=== PATIENT | female | born 1980 | race Two or more races ===

== ENCOUNTER 2020-01-23 12:38 | Inpatient (IN) | payer MEDICAID, OTHER ==
[~2020-01-23] VITALS: Ht 172.7 cm; Wt 147.4 kg
[2020-01-23] MEDS: BUDESONIDE (INHALATION) 180 MCG IH IN SCH (07:10)
[2020-01-23] MEDS ORDERED: methylPREDNISolone SOD SUCC 125 MG/2 ML VL IV ONE (16:00)
[2020-01-23 16:30] LABS: Basophils # (auto) 0 10 ^3/uL (0-0.2); Basophils % (auto) 0.3 % (0.0-2.0); Eosinophils # (auto) 0 10 ^3/uL (0-0.8); Eosinophils % (auto) 0.4 % (0.0-7.0); Hematocrit 39.5 % (36.0-46.0); Hemoglobin 12.9 g/dL (12.2-16.2); Lymphocytes # (auto) 1.8 10 ^3/uL (0.4-5.4); Lymphocytes % (auto) 16.9 % (10.0-50.0); Mean Corpuscular Hemoglobin 25.9 pg (28.0-32.0); Mean Corpuscular Hgb Conc. 32.7 g/dL (32.0-36.0); Mean Corpuscular Volume 79.3 fL (80.0-100.0); Monocytes % (auto) 9.3 % (0.0-12.0); Neutrophils # (auto) 7.7 10 ^3/uL (1.6-8.6); Neutrophils % (auto) 73.1 % (37.0-80.0); Nucleated Red Blood Cells % 0.3 %; Platelet Count (auto) 289 10^3/uL (140-450); Red Blood Cells 4.98 10^6/uL (4.0-5.20); Red Cell Distribution Width 16.2 % (11.8-14.3); White Blood Cell 10.6 10^3/uL (4.4-10.8)
[2020-01-23 16:50] LABS: Albumin 3.3 g/dL (3.4-5.0); BUN/Creatinine Ratio 13.4; Calcium 8.6 mg/dL (8.5-10.1); Potassium 3.8 mmol/L (3.5-5.1)
[2020-01-23 16:54] LABS: Bilirubin, Total 0.5 mg/dL (0.2-1.0); Total Protein 8.3 g/dL (6.4-8.2)
[2020-01-23] MEDS ORDERED: ENOXAPARIN SOD 100 MG/1 ML SYRINGE SC ONE (18:45)
[2020-01-23] MEDS ORDERED: MORPHINE SULF INJ 2 MG/ML SYRINGE 1ML IV PRN ×2 (22:00)
[2020-01-23] MEDS ORDERED: NITROGLYCERIN 0.4 MG SL TAB SL PRN (22:00)
[2020-01-23] MEDS ORDERED: HEPARIN SODIUM (PORCINE) 5000 UNITS/ML 1ML VIAL IV ONE (22:00)
[2020-01-23] MEDS ORDERED: ALBUTEROL SULF HFA 90MCG INH 200DOSE IN PRN (22:00)
[2020-01-23] MEDS ORDERED: ACETAMINOPHEN 325 MG TAB PO PRN (22:00)
[2020-01-23] MEDS ORDERED: ALUM & MAG HYDROX-SIMETH LIQ(MAALOX) 30 ML PO PRN (22:00)
[2020-01-23] MEDS ORDERED: REMDESIVIR PER PHARMACY 0 ML IV SCH (22:00)
[2020-01-23] MEDS ORDERED: METOCLOPRAMIDE HCL 5MG/ml INJ 2ml VIAL IV PRN (22:00)
[2020-01-23] MEDS ORDERED: HEPARIN DRIP/D5W 100UNITS/ML 250 ML IV SCH (22:00)
[2020-01-23] MEDS ORDERED: HYDROcodone-ACET 5/325MG TAB PO PRN (22:00)
[2020-01-23] MEDS ORDERED: REMDESIVIR 200 MG in NS 210ml LOADING DOSE ADULT IV ONE (23:00)
[2020-01-23] MEDS ORDERED: HEPARIN SODIUM (PORCINE) 5000 UNITS/ML 1ML VIAL ONE (23:45)
[2020-01-24 00:08] LABS: INR 1.08 (0.9-1.15); Partial Thromboplastin Time 27.6 sec (23.0-31.2)
[2020-01-24 00:46] LABS: Urine Bacteria FEW /hpf (None Seen); Urine Blood Negative /uL (Negative); Urine Hyaline Cast FEW /lpf (0 - 2); Urine Mucus FEW (None Seen); Urine Specific Gravity 1.026 (1.001-1.035); Urine WBC 33 /hpf (0 - 5)
[2020-01-24 02:20] LABS: INR 1.19 (0.9-1.15)
[2020-01-24 05:46] LABS: Basophils # (auto) 0 10 ^3/uL (0-0.2); Eosinophils # (auto) 0 10 ^3/uL (0-0.8); Neutrophils # (auto) 8.6 10 ^3/uL (1.6-8.6); Red Cell Distribution Width 16.3 % (11.8-14.3)
[2020-01-24 05:49] LABS: Basophils % (auto) 0.1 % (0.0-2.0); Hematocrit 37.4 % (36.0-46.0); Hemoglobin 11.8 g/dL (12.2-16.2); Lymphocytes # (auto) 1.9 10 ^3/uL (0.4-5.4); Lymphocytes % (auto) 16.6 % (10.0-50.0); Mean Corpuscular Hemoglobin 25.1 pg (28.0-32.0); Mean Corpuscular Hgb Conc. 31.6 g/dL (32.0-36.0); Mean Corpuscular Volume 79.6 fL (80.0-100.0); Monocytes % (auto) 8.6 % (0.0-12.0); Neutrophils % (auto) 74.7 % (37.0-80.0); Nucleated Red Blood Cells % 0.1 %; Platelet Count (auto) 284 10^3/uL (140-450); White Blood Cell 11.5 10^3/uL (4.4-10.8)
[2020-01-24 05:50] VITALS: BP 125/71
[2020-01-24 06:05] LABS: Potassium 3.8 mmol/L (3.5-5.1)
[2020-01-24 06:08] LABS: INR 1.1 (0.9-1.15)
[2020-01-24 06:14] LABS: Albumin 2.9 g/dL (3.4-5.0); BUN/Creatinine Ratio 19.5; Bilirubin, Total 0.4 mg/dL (0.2-1.0); Calcium 8.5 mg/dL (8.5-10.1); Total Protein 7.9 g/dL (6.4-8.2)
[2020-01-24] MEDS: BUDESONIDE (INHALATION) 180 MCG IH IN SCH (07:10)
--- NOTE | 2020-01-24 07:10 | NUR ---
Respiratory note: PT SEEN, SLEEPING AT THIS TIME NO DISTRESS NOTED. HR 105, RR 18, SPO2 92% ON 2L N/C. NO MDI'S AT BEDSIDE. WILL CALL PHARMACY
[2020-01-24] MEDS: HEPARIN DRIP/D5W 100UNITS/ML 250 ML IV SCH ×2 (07:22→13:02)
[2020-01-24] MEDS ORDERED: ZINC SULFATE 220mg CAP or TAB PO SCH (10:00)
[2020-01-24] MEDS ORDERED: ASCORBIC ACID 1,000 MG TAB PO SCH (10:00)
[2020-01-24] MEDS ORDERED: CHOLECALCIFEROL (VITD3) 2,000 UNIT CAP PO SCH (10:00)
[2020-01-24] MEDS ORDERED: AZITHROMYCIN 500MG/D5WorNS 250ml IV SCH (10:00)
[2020-01-24] MEDS ORDERED: DexAMETHasone SOD PHOS 10MG/1ML VIAL INJ IV SCH (10:00)
[2020-01-24] MEDS ORDERED: FUROSEMIDE 40 MG/4 ML VIAL IV ONE (11:15)
[2020-01-24] MEDS ORDERED: IOHEXOL 350 MG/ML 100ML IJ ONE (12:20)
[2020-01-24 13:38] LABS: INR 1.08 (0.9-1.15); Partial Thromboplastin Time 33.9 sec (23.0-31.2)
[2020-01-24] MEDS ORDERED: HEPARIN SODIUM (PORCINE) 5000 UNITS/ML 1ML VIAL IV ONE (14:00)
[2020-01-24] MEDS ORDERED: HEPARIN SODIUM (PORCINE) 5000 UNITS/ML 1ML VIAL ONE (14:06)
[2020-01-25] MEDS ORDERED: DexAMETHasone SOD PHOS 10MG/1ML VIAL INJ IV SCH (10:00)
[2020-01-25] MEDS ORDERED: FUROSEMIDE 20 MG TAB PO SCH (10:00)
[2020-01-25] MEDS ORDERED: ZINC SULFATE 220mg CAP or TAB PO SCH (10:00)
[2020-01-25] MEDS ORDERED: ASCORBIC ACID 500 MG TAB PO SCH (10:00)
== END 2020-01-24 17:18 | DRG 137 ==
LOC: ER 12:38 → EDBD 12:38 → OVERFLOW 12:39
PROVIDERS: ADMIT Hospitalist; ATTEND Hospitalist
PROC: 5A12012 Performance of Cardiac Output, Single, Manual (ICD-10-PCS; principal; 2020-01-24)
DX: U07.1 COVID-19 (principal); I26.99 Other pulmonary embolism without acute cor pulmonale; I46.9 Cardiac arrest, cause unspecified; I82.411 Acute embolism and thrombosis of right femoral vein; I82.431 Acute embolism and thrombosis of right popliteal vein; J12.89 Other viral pneumonia; J96.01 Acute respiratory failure with hypoxia; Z80.9 Family history of malignant neoplasm, unspecified; Z86.718 Personal history of other venous thrombosis and embolism; E66.01 Morbid (severe) obesity due to excess calories; I10 Essential (primary) hypertension
CPT/HCPCS: 31500; 36415; 71045; 71275; 80053; 81001; 82728; 83880; 84484; 84702; 85025; 85379; 85610; 85730; 86141; 87426; 92950; 93005; 93306; 93971; 96372; 96374; G0378; J1100